=== PATIENT | female | born 1935 | race Caucasian/White ===

== ENCOUNTER → 2023-09-05 08:43 | Outpatient (REF) | payer OTHER, SELFPAY | LOC: RAD 08:43 | PROVIDERS: ATTENDING PHYSICIAN Family Medicine | DX: M54.50 Low back pain, unspecified (principal); W19.XXXA Unspecified fall, initial encounter | CPT/HCPCS: 72110 ==

== ENCOUNTER 2023-09-18 06:22 | Outpatient (RCR) | payer OTHER, SELFPAY | END 2023-09-18 23:59 | disposition home or self-care (01) | LOC: RPT 06:22 | PROVIDERS: ATTENDING PHYSICIAN Family Medicine | DX: R26.89 Other abnormalities of gait and mobility (principal); Z73.6 Limitation of activities due to disability; M54.50 Low back pain, unspecified; R29.6 Repeated falls | CPT/HCPCS: 97110; 97161 ==